=== PATIENT | female | born 1990 | race Caucasian/White ===

== ENCOUNTER 2018-03-26 13:57 | Emergency (ER) | payer OTHER ==
[~2018-03-26] VITALS: Ht 160 cm; Wt 144.4 kg
[2018-03-26] MEDS ORDERED: FLEXERIL5 MG PO (15:33)
[2018-03-26 15:37] VITALS: BP 150/80
== END 2018-03-26 15:43 | disposition home or self-care (01) | DRG 605 ==
LOC: ED 13:57
DX: S00.03XA Contusion of scalp, initial encounter (principal); S00.01XA Abrasion of scalp, initial encounter; S60.511A Abrasion of right hand, initial encounter; W20.8XXA Other cause of strike by thrown, projected or falling object, initial encounter; Y92.007 Garden or yard of unspecified non-institutional (private) residence as the place of occurrence of the external cause

== ENCOUNTER 2021-08-17 18:31 | Emergency (ER) | payer BC ==
[~2021-08-17] VITALS: Ht 160 cm; Wt 154.5 kg
[~2021-08-17 18:31] MED LIST: FLEXERIL5 MG PO
[2021-08-17 18:40] VITALS: BP 144/105
[2021-08-17] MEDS ORDERED: LEVOTHYROXIN50 MC1 PO (18:43)
[2021-08-17] MEDS ORDERED: DOXYCYCLINE50 MG PO (18:44)
[2021-08-17] MEDS ORDERED: TESSALON PERLE100 MG PO (20:28)
[2021-08-17] MEDS ORDERED: NAPROXEN500 MG PO (20:28)
[2021-08-17] MEDS ORDERED: ZYRTEC10 MG PO (20:28)
[2021-08-17] MEDS ORDERED: ZPAK PO (20:35)
[2021-08-17 20:46] VITALS: BP 144/105
== END 2021-08-17 21:38 | disposition home or self-care (01) | DRG 866 ==
LOC: ED 18:31
DX: B34.9 Viral infection, unspecified (principal); E66.01 Morbid (severe) obesity due to excess calories; Z20.822 Contact with and (suspected) exposure to COVID-19

== ENCOUNTER 2022-08-17 18:22 | Emergency (ER) | payer OTHER ==
[~2022-08-17] VITALS: Ht 172.7 cm; Wt 110.0 kg
[~2022-08-17 18:22] MED LIST changes: +DOXYCYCLINE50 MG PO; +FATHER JOH10 MG/5 ML PO; +LEVOTHYROXIN50 MC1 PO; +MEDDOSEPAK PO; +NAPROXEN500 MG PO; +TESSALON PERLE100 MG PO; +ZPAK PO; +ZYRTEC10 MG PO
[2022-08-17 19:06] VITALS: BP 151/113
[2022-08-17] MEDS ORDERED: BACTRIM DS1 TAB PO (19:17)
[2022-08-17 19:49] LABS: URINE BILIRUBIN - DIPSTICK NEGATIVE (NEGATIVE); URINE BLOOD DIPSTICK TRACE-LYSED (NEGATIVE); URINE COLOR YELLOW; URINE GLUCOSE - DIPSTICK NEGATIVE (NEGATIVE); URINE KETONE NEGATIVE (NEGATIVE); URINE LEUK ESTERASE NEGATIVE (NEGATIVE); URINE PROTEIN - DIPSTICK NEGATIVE (NEG-TRACE); URINE SPECIFIC GRAVITY 1.025; URINE UROBILINOGEN - DIPSTICK 0.2 E.U./dL (0.2)
[2022-08-17 19:54] LABS: URINE NITRITE - DIPSTICK NEGATIVE (Negative)
[2022-08-17 20:11] LABS: ANION GAP 16 (6-22 (CALC)); BUN 11 mg/dL (7-17); BUN/CREATININE RATIO 11 (12-20 (CALC)); CARBON DIOXIDE 22 mmol/l (22-30); CHLORIDE 105 mmol/l (95-108); GFR FOR AFR.AMER. > 60 ML/MIN (>=60 (CALC)); GFR OTHER RACES > 60 ML/MIN (>=60 (CALC)); POTASSIUM 4.2 mmol/l (3.5-5.1); SODIUM 138 mmol/l (137-146)
[2022-08-17 20:42] LABS: TSH, 3RD GENERATION 9.23 uIU/mL (0.47 - 4.68)
[2022-08-17 21:24] VITALS: BP 146/78
== END 2022-08-17 21:30 | disposition home or self-care (01) | DRG 696 ==
LOC: ED 18:22
PROVIDERS: Family Medicine
DX: R35.0 Frequency of micturition (principal); E03.9 Hypothyroidism, unspecified

== ENCOUNTER 2023-02-09 18:30 | Emergency (ER) | payer OTHER ==
[2023-02-09] VITALS (14 sets, daily range): BP systolic 100–129; BP diastolic 60–81
[~2023-02-09] VITALS: Ht 175.3 cm; Wt 158.8 kg
[~2023-02-09 18:30] MED LIST changes: +BACTRIM DS1 TAB PO
[2023-02-09 19:51] LABS: BASO% 0.3 % (0-3); EOS% 0.3 % (0-8); HEMATOCRIT 38.2 % (37.0-47.0); HEMOGLOBIN 12.1 g/dl (12.0-16.0); IMMATURE GRANULOCYTES 0.1 % (0.0-5.0); LYMPH% 13.5 % (15-41); MEAN CELL VOLUME 83.8 fL CALC (80.0-100.0); MEAN CORPUSCULAR HGB 26.5 pG CALC (26.0-32.0); MEAN CORPUSCULAR HGB CONC 31.7 g/dL CAL (32.0-36.0); MONO% 5.4 % (2-13); NEUT# 9.35 thou/uL (2.00-7.15); NEUT% 80.4 % (42-76); RED BLOOD COUNT 4.56 mill/uL (4.20-5.60); RED CELL DISTRI WIDTH 14.6 % (11.5-15.5)
[2023-02-09 19:54] LABS: URINE BILIRUBIN - DIPSTICK Negative (NEGATIVE); URINE BLOOD DIPSTICK Negative (NEGATIVE); URINE GLUCOSE - DIPSTICK Negative (NEGATIVE); URINE KETONE Trace mg/dL (NEGATIVE); URINE LEUK ESTERASE Negative (NEGATIVE); URINE NITRITE - DIPSTICK Negative (Negative); URINE PH 7.5 (4.5-8.0); URINE PROTEIN - DIPSTICK 100 mg/dL (NEG-TRACE); URINE UROBILINOGEN - DIPSTICK 0.2 E.U./dL (0.2)
[2023-02-09 19:55] LABS: URINE COLOR Yellow
[2023-02-09 19:58] LABS: URINE BACTERIA RARE hpf; URINE RBC 0-2 RBC/hpf (0-5); URINE SQUAMOUS EPITHELIAL CELL MANY EPI/hpf (0-FEW)
[2023-02-09] MEDS ORDERED: LEVOTHYROXIN88 MC1 PO (20:10)
[2023-02-09 21:20] LABS: ALBUMIN 4.4 g/dL (3.2-5.0); ALKALINE PHOSPHATASE 100 u/l (38-126); ANION GAP 10 (6-22 (CALC)); BILIRUBIN, TOTAL 0.3 mg/dL (0.02-1.3); BUN 15 mg/dL (7-17); BUN/CREATININE RATIO 18 (12-20 (CALC)); CHLORIDE 104 mmol/l (95-108); CREATININE 0.8 mg/dL (0.5-1.0); GFR FOR AFR.AMER. > 60 ML/MIN (>=60 (CALC)); GFR OTHER RACES > 60 ML/MIN (>=60 (CALC)); LIPASE 114 u/l (23-300); POTASSIUM 4.2 mmol/l (3.5-5.1); SGOT/AST 27 u/l (14-36); SODIUM 139 mmol/l (137-146); TOTAL PROTEIN 8.1 g/dL (6.3-8.2)
[2023-02-09 21:25] LABS: CARBON DIOXIDE 29 mmol/l (22-30)
== END 2023-02-09 23:20 | disposition home or self-care (01) | DRG 395 ==
LOC: ED 18:30
PROVIDERS: Nurse Practitioner
DX: K42.9 Umbilical hernia without obstruction or gangrene (principal); E66.01 Morbid (severe) obesity due to excess calories; E03.9 Hypothyroidism, unspecified
CPT/HCPCS: Q9967

== ENCOUNTER 2023-04-03 06:55 | Day surgery (SDC) | payer OTHER ==
[~2023-04-03] VITALS: Ht 175.3 cm; Wt 158.8 kg
[~2023-04-03 06:55] MED LIST changes: +LEVOTHYROXIN88 MC1 PO
[2023-04-03] MEDS ORDERED: FAMOTIDINE 10MG/ML 2ML SDV IV ONE (07:03)
[2023-04-03] MEDS ORDERED: SODIUM CHLORIDE 0.9% 100 ML IV ONE (07:03)
[2023-04-03] MEDS ORDERED: ceFAZolin Sodium 2 GM/VIAL SDV ONE (07:03)
[2023-04-03] MEDS ORDERED: LACTATED RINGER'S 1,000 ML IV ONE (07:04)
[2023-04-03] MEDS ORDERED: LIDOcaine HCl 1% (Local Anesth.) 20 ML VIAL ONE (07:10)
[2023-04-03] MEDS ORDERED: STERILE WATER FOR IRRIGATION 1,000 ML BTL IR ONE (07:10)
[2023-04-03] MEDS ORDERED: SODIUM CHLORIDE 1,000 ML BTL IR ONE (07:10)
[2023-04-03] MEDS ORDERED: PERCOCET 5/325M1 TAB PO ×2 (08:44→10:23)
[2023-04-03] MEDS ORDERED: ACETAMINOPHEN 100 ML IV ONE (09:37)
[2023-04-03] MEDS ORDERED: HYDROmorphone HCL 2 MG/AMP ONE (10:18)
[2023-04-03] MEDS ORDERED: ONDANSETRON HCl 4 MG/2 ML SDV ONE (10:27)
[2023-04-03 11:41] VITALS: BP 108/61
[2023-04-03] MEDS ORDERED: ROCURONIUM BROMIDE 10 MG/ML 5ML VIAL IV ONE (15:53)
[2023-04-03] MEDS ORDERED: ONDANSETRON HCl 4 MG/2 ML SDV IV ONE (15:53)
[2023-04-03] MEDS ORDERED: DEXAMETHASONE SODIUM PHOSPHATE PF 10 MG/ML SDV IV ONE (15:53)
[2023-04-03] MEDS ORDERED: MIDAZOLAM HCL 2 MG/2 ML VIAL IV ONE (15:53)
[2023-04-03] MEDS ORDERED: SUCCINYLCHOLINE CHLORIDE 20 MG/ML 10ML VIAL IV ONE (15:53)
[2023-04-03] MEDS ORDERED: KETOROLAC TROMETHAMINE 30 MG/ML SDV IV ONE (15:53)
[2023-04-03] MEDS ORDERED: PROPOFOL 200 MG/20 ML VIAL IV ONE (15:53)
[2023-04-03] MEDS ORDERED: SUGAMMADEX SODIUM 200 MG/2 ML SDV IV ONE (15:53)
[2023-04-03] MEDS ORDERED: LIDOCAINE HCL 2% 2ML SDV IV ONE (15:53)
== END 2023-04-03 11:25 | disposition home or self-care (01) | DRG 355 ==
LOC: ORM 06:55
PROVIDERS: ATTEND Surgery
PROC: 0WUF4JZ Supplement Abdominal Wall with Synthetic Substitute, Percutaneous Endoscopic Approach (ICD-10-PCS; principal; 2023-04-03)
DX: K43.6 Other and unspecified ventral hernia with obstruction, without gangrene (principal)
CPT/HCPCS: C1781; J0131; J0690; J1100